=== PATIENT | female | born 2000 | race Caucasian/White ===

== ENCOUNTER → 2019-01-10 | Outpatient (CLI) | payer OTHER ==
--- NOTE | 2019-01-10 17:21 | REP ---
Left knee five views : There is no fracture or dislocation. Mineralization and joint spaces are normal. There are no calcifications or foreign bodies. Impression: Negative left knee . Electronically Signed by Brijesh Germain MD 01/10/2019 05:13 P
== END ==
LOC: M ADAMS 16:28
PROVIDERS: ATTEND Physician Assistant Medical
DX: M25.562 Pain in left knee (principal)